=== PATIENT | male | born 1965 | race Caucasian/White ===

== ENCOUNTER 2020-03-26 11:46 | Emergency (ER) | payer OTHER ==
--- OUTSIDE RECORDS SUMMARY | 2020-03-26 11:52 | XMS REPORT | Clinical Summary ---
:1965 Author Organization [facility] Address [address] [place] [address] Care Team Providers Name Role Phone Rojelio Corey MD Primary Care Provider Allergies No Known Allergies Medications Medication Sig Dispensed Refills Start Date End Date Status lisinopril TAKE ONE (1) 3 01/25/2016 Activ e (PRINIVIL,ZESTRIL) 20 TABLET(S) BY MOUTH MG tablet DAILY. HYDROcodone-acetaminop 0 02/25/2016 Active hen (NORCO) 5-325 mg per tablet aspirin 325 MG Take 325 mg by 0 Active buffered tablet mouth daily. CYANOCOBALAMIN, Inject as 0 Acti ve VITAMIN B-12, (B-12 directed. KIT INJ) Active Problems Problem Noted Date Carpal tunnel syndrome of left wrist 03/04/2016 Carpal tunnel syndrome of right wrist 03/04/2016 Family History Medical History Relation Name Comments Cancer Father Diabetes Father Heart disease Father Stroke Father Cancer Mother Hypertension Mother Stroke Mother Relation Name Status Comments Father Alive Mother Social History Tobacco Use Types Packs/Day Years Used Date Never Smoker Smokeless Tobacco: Never Used Alcohol Use Drinks/Week oz/Week Comments No Sex Assigned at Date Recorded Not on file Job Start Date Occupation Industry Not on file Not on file Not on file Travel History Travel Start Travel End No recent travel history available. Last Filed Vital Signs Not on file Plan of Treatment Health Maintenance Due Date Last Done Comments COLONOSCOPY SCREENING 2014 SHINGLES VACCINES (#1) 2014 INFLUENZA VACCINE 03/10/2020 Results Not on fileafter 03/26/2019 (Home) [place] [id number]
--- OUTSIDE RECORDS SUMMARY | 2020-03-26 11:53 | XMS REPORT | Summary of Care ---
:1965 Author Organization [facility] Cardiology [place] Address [address] [place] [address]- Encounter HQ Breana(FIN) [id number] Date(s): 02/18/20 - 02/18/20 [facility] Cardiology [place] [address] [place] [address]- [phone] Discharge Disposition: Home or Self Care Attending Physician: VISIT, NURSE [facility] DOPPLER Referring Physician: Claudia Rivera FINANCIAL AID DIRECTOR Vital Signs Most recent to oldest [Reference Range]: 1 Height 180.34 cm (02/18/20 3:16 PM) Temperature Oral [96.4-99.1 DegF] 98.6 DegF (02/18/20 3:16 PM) Blood Pressure [90-140/60-90 mmHg] 120/80 mmHg (02/18/20 3:16 PM) Respiratory Rate [14-20 BRMIN] 17 BRMIN (02/18/20 3:16 PM) Peripheral Pulse Rate [60-100 bpm] 70 bpm (02/18/20 3:16 PM) Weight 100.909 kg (02/18/20 3:16 PM) Body Mass Index 31.03 m2 (02/18/20 3:16 PM) Problem List Condition Effective Dates Status Health Status Informant Benign hypertension1 05/26/14 Active Body mass index 30+ - obesity2 05/26/14 Active Central chest pain(Confirmed) Active Cobalamin deficiency3 Active Abnormal finding on EKG(Confirmed) Active Family history of colon Active cancer(Confirmed) Fatigue4 05/26/14 Active Gastroesophageal reflux disease5 Active Left ventricular Active hypertrophy(Confirmed) Leukopenia6 Active Right lower quadrant pain7 10/23/14 Active Screening - health check8 10/23/14 Active 1Data migrated from [employer] on 12/06/14.2Data migrated from [employer] on 12/06/14.3Data migrated from [employer] on 12/06/14.4Data migrated from [employer] on 12/06/14.5Data migrated from [employer] on 12/06/14.6Data migrated from [employer] on 12/06/14.7Data migrated from [employer] on 01/14/15.8Data migrated from [employer] on 01/14/15. Allergies, Adverse Reactions, Alerts No Known Medication Allergies Medications No Known Medications Results No data available for this section Immunizations Given and Recorded Vaccine Date Status Refusal Reason diphtheria/pertussis, acel/tetanus adult1 09/20/13 Given 1Result Comment: adacel [[id number]]. Migrated from [facility] ; Data migrated from [employer] on 08/11/2015. Procedures Procedure Date Related Diagnosis Body Site Status Cardiac angiogram1 Completed 59191 approx. Social History Social History Type Response Employment/School Status: Employed. Smoking Status Never smoker; Previous treat ment: None; Ready to change: No; Concerns about tobacco use in household: No; Exposure to Tobacco Smoke None; Cigarette Smoking Last 365 Days No; Reg Smoking Cessation Counseling No entered on: 02/18/20 Assessment and Plan No data available for this section
--- OUTSIDE RECORDS SUMMARY | 2020-03-26 11:53 | XMS REPORT | Continuity of Care Document ---
:1965 Author Organization [facility] Care Team Providers Name Role Phone [facility] Unavailable Un available Problems Problem Status Onset Classification Date Comments Sourc e Date Reported Right lower Active 10/24/19 Problem 02/21/2020 Data quadrant pain 15 migrated Medica l (finding) from [facility] [employer] on 01/14/15. Screening - health Active 10/24/19 Problem 02/21/2020 Data check (procedure) 15 migrated Me dical from [employer] on 01/14/15. PREVENTIVE HEALTH Active 10/24/19 Condition 10/23/2014 M H CARE 15 Medical Group ABDOMINAL PAIN, Active 10/24/19 Condition 10/23/2014 RIGHT LOWER 15 Medical QUADRANT Group Benign hypertension Active 05/26/20 Problem 02/21/2020 Data MH (disorder) 14 migrated Medical from [employer] on 12/06/14. Body mass index 30+ Active 05/26/20 Problem 02/21/2020 Data - obesity (finding) 14 migrated Medical from [employer] on 12/06/14. Fatigue (finding) Active 05/26/20 Problem 02/21/2020 Data M H 14 migrated Medical from [employer] [facility] [employer] on 12/06/14. BODY MASS INDEX Active 05/26/20 Condition 10/23/2014 33.0-33.9, ADULT 14 Med ical Group HYPERTENSION - Active 05/26/20 Condition 10/23/2014 BENIGN ESSENTIAL 14 Med ical Group TIREDNESS Active 05/26/20 Condition 10/23/2014 14 Medical Group SINUSITIS, ACUTE Inactive 05/26/20 Condition 10/23/2014 14 Medical Group CHEST WALL PAIN, Inactive 11/14/19 Condition 10/23/2014 ACUTE 14 Medical Group PULMONARY Inactive 11/14/19 Condition 10/23/2014 CONTUSION, WITHOUT 14 M edical OPEN WOUND INTO Grou p THORAX ACC CAUSED OTH SPEC Inactive 09/21/19 Condition 10/23/2014 CUT&PIERCING 14 Medical INSTRUM/OBJS Group Cobalamin Active Problem 02/21/2020 Data MH deficiency migrated Medical (disorder) from [facility] on 12/06/14. Family history of Active Problem 02/21/2020 M H cancer of colon Medi davin (context-dependent G roup category) Gastroesophageal Active Problem 02/21/2020 Data reflux disease migrated Medic al (disorder) from [facility] on 12/06/14. Leukopenia Active Problem 02/21/2020 Data MH (disorder) migrated Medical from [facility] on 12/06/14. Central chest pain Active Problem 02/21/2020 (finding) Medical Group Abnormal ECG Active Problem 02/21/2020 (finding) Medical Group Left ventricular Active Problem 02/21/2020 hypertrophy Medical (disorder) Group LEUKOPENIA, CHRONIC Active Condition 10/23/2014 Medical Group B12 DEFICIENCY Active Condition 10/23/2014 Medical Group GASTROESOPHAGEAL Active Condition 10/23/2014 REFLUX DISEASE Medic al Group Medications Medication Details Route Status Patient Ordering Order Source Instructions Provider Date Triamcinolone 60 mg, Inactive Acetonide 10 Route: IM, 020 Medical MG/ML Injectable Drug form: Grou p Suspension SUSP, ONCE, Dosing Weight 103.636, kg, Start date: 09/26/19 14:38:00 CDT, Stop date: 09/26/19 14:38:00 CDT albuterol 90 1 puff, Active mcg/inh INHALER, 020 Medical inhalation Q4H, PRN for Group aerosol wheezing/cou gh, # 8.5 gm, 0 Refill(s), Pharmacy: [facility] montelukast 10 10 mg = 1 Active MH mg oral tablet tab, PO, 020 Medical Bedtime, # Group 90 tab, 1 Refill(s), Pharmacy: [facility] cetirizine 10 mg = 1 Active hydrochloride 10 tab, PO, 020 Medica l MG Oral Tablet Daily, # 90 Group [Zyrtec] tab, 0 Refill(s), Pharmacy: [facility] Amoxicillin 875 875 mg = 1 Active MG / Clavulanate tab, PO, 020 Medica l 125 MG Oral BID, X 10 Group Tablet day, # 20 [Augmentin tab, 0 875-mg] Refill(s), Pharmacy: [facility] Vitamin B-12 1,000 Active MH 1000 mcg/mL microgram, 019 Medical injectable SUB-Q, Group solution qMonth, dispense syringes, # 10 mL, 3 Refill(s), Pharmacy: [facility] lisinopril 20 mg 20 mg = 1 Active MH oral tablet tab, PO, 019 Medical Daily, # 30 Group tab, 12 Refill(s), Pharmacy: [facility] lisinopril 20 mg 20 mg = 1 Active MH oral tablet tab, PO, 019 Medical Daily, # 30 Group tab, 11 Refill(s), [facility] ML Varicella 0.5 mL, IM, Active MH zoster virus ONCE, repeat 018 Medica l glycoprotein E, dose in 2 to Nathan up recombinant 0.1 6 months, # MG/ML Injection 1 mL, 1 [Shingrix] Refill(s), Pharmacy: [facility] Vitamin B-12 1,000 Active MH 1000 mcg/mL microgram, 018 Medical injectable SUB-Q, Group solution qMonth, dispense syringes, # 30 mL, 5 Refill(s), Pharmacy: [facility] lisinopril 20 mg 20 mg = 1 Active MH oral tablet tab, PO, 018 Medical Daily, # 90 Group tab, 3 Refill(s), Pharmacy: [facility] AMOXICILLIN 500 1 capsule No Longer MH MG CAPS three times Active 015 Medical a day for 10 Group days IPRATROPIUM 2 spray ea 6 Active MH BROMIDE 0.06 % hours as 015 Medical SOLN needed for Group congestion LISINOPRIL 10 MG 1 tablet Active MH TABS daily for BP 014 Medical Increase Group to 2 tabs daily after 10 days if BP not <135/85 AMOXICILLIN 500 1 capsule No Longer MH MG CAPS three times Active 014 Medical a day for 10 Group days MONTELUKAST 1 tablet Active MH SODIUM 10 MG daily for 014 Medical TABS congestion Group AMOXICILLIN 500 1 capsule Active MH MG CAPS three times 014 Medical a day for 10 Group days MONTELUKAST 1 tablet Active MH SODIUM 10 MG daily for 014 Medical TABS congestion Group MONTELUKAST 1 tablet Active MH SODIUM 10 MG daily for 014 Medical TABS congestion Group CELEBREX 100 MG 1 by mouth Active MH CAPS twice daily 014 Medical Group PX RANITIDINE 75 2 by mouth Active MH MG TABS daily as 014 Medical needed for Group reflux ADVIL 200MG 2-4 by mouth Active MH daily as 014 Medical needed for Group pain HYDROCODONE-ACET 1 tablet No Longer MH AMINOPHEN every 6 Active 014 Medical 7.5-325 MG TABS hours as Group needed for pain CELEBREX 100 MG 1 by mouth No Longer MH CAPS twice daily Active 014 Medical Group HYDROCODONE-ACET 1 tablet No Longer MH AMINOPHEN every 6 Active 014 Medical 7.5-325 MG TABS hours as Group needed for pain TRAMADOL HCL 50 1 TAB PO UP No Longer MH MG TABS TO THREE Active 014 Medical TIMES A DAY Group NEEDED FOR PAIN ZANAFLEX 4 MG 1 TAB PO IN No Longer MH TABS THE PM Active 014 Medical Group TRAMADOL HCL 50 1 TAB PO UP No Longer MH MG TABS TO THREE Active 014 Medical TIMES A DAY Group NEEDED FOR PAIN TRAMADOL HCL 50 1 TAB PO UP No Longer MH MG TABS TO THREE Active 014 Medical TIMES A DAY Group NEEDED FOR PAIN MINOCYCLINE HCL 1 po bid No Longer MH 100 MG CAPS Active 014 Medical Group CYANOCOBALAMIN inject 1ml Active MH 1000 MCG/ML SOLN (1000 mcg) 012 Medi davin IM monthly Group BD LUER-KAM use 1 Active SYRINGE 25G X 1" syringe/need 012 Me dical 3 ML MISC le monthly Group for B12 inj ACIPHEX 20 MG 1 tab po Active MH TBEC daily as Medical needed Group ACIPHEX 20 MG 1 tab po Active MH TBEC daily as Medical needed Group Allergies, Adverse Reactions, Alerts Substance Category Reaction Severity Reaction Status Date Comments S ource type Reported No Known Assertion Drug Medication allergy Medic al Allergies Group Immunizations Immunization Date Site Status Last Comments Source Given Updated Adacel (Tetanus, completed Medical reduced 4 Group Diphtheria, and acellular Pertussis Immunization) diphtheria/pertu Right completed GE Result Medical ssis, 4 Deltoid Comment: Group acel/tetanus adacel adult<sup>1</sup [[id number]]. > Migrated from [facility] ; [facility]. Results Order Name Results Value Reference Date Interpretation Comments Anamaria rce Range Chemistry SODIUM 139 135 - 143 2013 Medical Group Chemistry POTASSIUM 4.1 3.3 - 5.0 2013 Medical Group Chemistry ALBUMIN 4.4 3.5 - 5.0 2013 Medical Group Chemistry CALCIUM 9.2 8.6 - 9.8 2013 Medical Group Chemistry CREATININE 1.04 0.46 - 1.20 2013 Medical Group Chemistry BUN 7 10 - 22 2013 Medical Group Chemistry ALK PHOS 48 32 - 96 2013 Medical Group Chemistry SGOT (AST) 21 10 - 42 2013 Medical Group Chemistry SGPT (ALT) 33 11 - 43 2013 Medical Group Chemistry CHOLESTEROL 204 120 - 200 2013 Medical Group Chemistry HDL 37 26 - 62 2013 Medical Group Chemistry LDL 136 0 - 130 2013 Medical Group Chemistry TSH 1.48 0.34 - 5.60 2013 Medical Group Hematology HGB 15.0 12.3 - 17.3 2013 Medical Group Hematology HCT 45.6 36.7 - 50.5 2013 Medical Group Pathology Reports No Data Provided for This Section Diagnostic Reports No Data Provided for This Section Consultation Notes No Data Provided for This Section Discharge Summaries No Data Provided for This Section History and Physicals No Data Provided for This Section Vital Signs Vital Sign Value Date Comments Source Systolic (mm Hg) 120 02/18/2020 Medical Group Diastolic (mm Hg) 80 02/18/2020 Medical Group Heart Rate 70 02/18/2020 Medical Grou p Respitory Rate 17 02/18/2020 Medical Gr oup Temperature Oral (F) 98.6 F 02/18/2020 Medi davin Group Height 180.34 cm 02/18/2020 Medical Grou p Weight 100.909 02/18/2020 Medical Grou p BMI Calculated 31.03 02/18/2020 Medical Gr oup Systolic (mm Hg) 126 09/26/2019 Medical Group Diastolic (mm Hg) 89 09/26/2019 Medical Group Heart Rate 77 09/26/2019 Medical Grou p Temperature Oral (F) 98.1 F 09/26/2019 Medi davin Group Weight 103.636 09/26/2019 Medical Grou p Systolic (mm Hg) 121 08/01/2019 Medical Group Diastolic (mm Hg) 82 08/01/2019 Medical Group Heart Rate 90 08/01/2019 Medical Grou p Temperature Oral (F) 98.4 F 08/01/2019 Medi davin Group Weight 103.636 08/01/2019 Medical Grou p Systolic (mm Hg) 135 02/18/2019 Medical Group Diastolic (mm Hg) 92 02/18/2019 Medical Group Heart Rate 76 02/18/2019 Medical Grou p Respitory Rate 17 02/18/2019 Medical Gr oup Temperature Oral (F) 97.8 F 02/18/2019 [facility] davin Group Height 180.34 cm 02/18/2019 Medical Grou p Weight 100.455 02/18/2019 Medical Grou p BMI Calculated 30.89 02/18/2019 Medical Gr oup BMI Calculated 31.87 04/13/2018 Medical Gr oup Weight 103.636 04/13/2018 Medical Grou p Height 180.34 cm 04/13/2018 Medical Grou p Systolic (mm Hg) 126 04/13/2018 Medical Group Diastolic (mm Hg) 87 04/13/2018 Medical Group Heart Rate 76 04/13/2018 Medical Grou p Temperature Oral (F) 97.9 F 04/13/2018 Medi davin Group BMI Calculated 31.73 04/12/2018 Medical Gr oup Weight 103.182 04/12/2018 Medical Grou p Height 180.34 cm 04/12/2018 Medical Grou p Heart Rate 74 04/12/2018 Medical Grou p Temperature Oral (F) 97.8 F 04/12/2018 Medi davin Group Respitory Rate 17 04/12/2018 Medical Gr oup Systolic (mm Hg) 120 04/12/2018 [facility] Medical Group Diastolic (mm Hg) 86 04/12/2018 Medical Group BMI Calculated 31.31 01/08/2018 MH Medical Gr oup Weight 101.818 01/08/2018 MH Medical Grou p Height 180.34 cm 01/08/2018 MH Medical Grou p Systolic (mm Hg) 114 01/08/2018 [facility] Medical Group Diastolic (mm Hg) 84 01/08/2018 Medical Group Temperature Oral (F) 97.5 F 01/08/2018 Medi davin Group Heart Rate 89 01/08/2018 MH Medical Grou p Weight 225.0 10/23/2014 Medical Grou p Temperature Oral (F) 97.5 F 10/23/2014 Medi davin Group Heart Rate 73 10/23/2014 Medical Grou p Respitory Rate 16 10/23/2014 Medical Gr oup Systolic (mm Hg) 121 10/23/2014 Medical Group Diastolic (mm Hg) 87 10/23/2014 Medical Group Weight 222 08/07/2014 Medical Grou p Temperature Oral (F) 98.3 F 08/07/2014 Medi davin Group Heart Rate 76 08/07/2014 Medical Grou p Respitory Rate 16 08/07/2014 Medical Gr oup Systolic (mm Hg) 120 08/07/2014 Medical Group Diastolic (mm Hg) 70 08/07/2014 Medical Group Weight 227 05/26/2014 Medical Grou p Temperature Oral (F) 98.1 F 05/26/2014 Medi davin Group Respitory Rate 16 05/26/2014 Medical Gr oup Heart Rate 80 05/26/2014 Medical Grou p Systolic (mm Hg) 136 05/26/2014 Medical Group Diastolic (mm Hg) 100 05/26/2014 Medical Group Weight 222 11/13/2013 MH Medical Grou p Systolic (mm Hg) 156 11/13/2013 Medical Group Diastolic (mm Hg) 106 11/13/2013 Medical Group Temperature Oral (F) 97.6 F 11/13/2013 Medi davin Group Heart Rate 72 11/13/2013 Medical Grou p Weight 227 09/20/2013 Medical Grou p Temperature Oral (F) 98 F 09/20/2013 Medi davin Group Height 69 09/20/2013 Medical Grou p Heart Rate 80 09/20/2013 Medical Grou p Systolic (mm Hg) 136 09/20/2013 Medical Group Diastolic (mm Hg) 80 09/20/2013 Medical Group Encounters Location Location Encounter Encounter Reason Attending ADM DC Stat us Source Details Type Number For Provider Date Date Visit [facility] Office [id number] [facility] 11/13 11/13 [place] Medical Visit [id number] RAJESH Jones /[address] [facility] Internal Medicine [facility] Lab Report [id number] Art 05/26 05/26 [place] [id number] Madhav, /2013 Me jenny Gleason MD [facility] Family Practice [facility] Office [id number] Art 08/07 08/07 [place] [id number] Madhav, Me jenny Gleason MD [facility] Family Practice [facility] Office [id number] Art 10/23 10/23 [place] Visit [id number] Madhav, Me jenny Gleason MD [facility] Family Practice Outpatient [id number] [facility] 04/06 [facility] [id number] ART 09/07 [facility] [place] [facility] [id number] ART 12/14 Active [facility] [id number] ANTONY 01/08 Active [facility] Family Outpatient [id number] Antony 01/08 01/09 Medicine 3 [facility] Outpatient [id number] L JUSTUS 04/12 Active [facility] 4 [facility] Outpatient [id number] L Justus 04/12 04/13 M [facility] Cardiology 4 Medica l [facility] Outpatient [id number] ANTONY 04/13 Active [facility] Family Outpatient [id number] Antony 04/13 04/14 Medicine 5 Jun Medical [facility] Outpatient [id number] DOPPLER 04/16 Active [facility] 7 [facility] Out[facility] [id number] NUCLEAR 04/16 Active [facility] 6 [facility] [place] Out[facility] [id number] NUCLEAR 04/16 Active [facility] 1 [facility] [place] Outpatient [id number] NUCLEAR 04/16 Active [facility] 8 [facility] [place] Outpatient [id number] NUCLEAR 04/16 Active [facility] 0 [facility] [place] Outpatient [id number] NUCLEAR 04/16 Active [facility] 9 V[facility] [place] MG Outpatient [id number] NURSE VISIT 04/16 04/17 Radiology [facility] [id number] NURSE VISIT 04/16 04/16 Radiology Pre-Reg Medica [facility] [id number] NURSE VISIT 04/16 04/16 Radiology Pre-Reg Medica [facility] [id number] NURSE VISIT 04/16 04/16 Radiology Pre-Reg Medica [facility] Outpatient [id number] NURSE VISIT 04/16 04/17 Medicine [facility] [id number] NURSE VISIT 04/16 04/16 Radiology Pre-Reg Medica [facility] Outpatient [id number] ZOLTAN FISHER 07/05 Act [facility] [id number] 07/05 07/05 Medicine Pre-Reg Medical [facility] Phone [id number] 02/14 02/16 Medicine Message [facility] Outpatient [id number] Antony 02/18 Active [facility] [place] [facility] [id number] NURSE VISIT 02/18 Act [facility] Outpatient [id number] Antony 02/18 02/19 Medicine 3 Jun [facility] Outpatient [id number] NURSE VISIT 02/18 02/19 Cardiology Medica [facility] Family Phone [id number] 05/06 05/08 Medicine Message Medical [facility] Outpatient [id number] [place] 08/01 Act [facility] 5 me [place] [facility] Family Outpatient [id number] [place] 08/01 08/02 Medicine 5 tx [place] Medic [facility] Outpatient [id number] [place] 09/25 Act [facility] 6 me [place] 2020 [facility] Family Outpatient [id number] [place] 09/25 09/26 Medicine 6 tx [place] [facility] Outpatient [id number] NURSE VISIT 02/17 Act [facility] [id number] L Justus 02/17 Active M [facility] 8 [place] [place] [facility] Outpatient [id number] Rayto[place] 02/17 02/18 Radiology 7 Nicole Medi d[facility] Outpatient [id number] Raytoysha 02/17 02/18 Cardiology 8 Nicole Med ical [facility] Procedures Procedure Code Date Perfomer Comments Source colonoscopy 18343 09/28/2007 Done [facility] Cardiac [id number] 2007 approx. Medical angiogram<sup>1</s Group up> Assessment and Plan No Data Provided for This Section Plan of Care No Data Provided for This Section Social History Social History Date Source Social History TypeResponse 04/12/2018 Medical Julee dahl Employment/School Status: Employed. Smoking Status Never smoker; Previous treatment: None; Ready to change: No; Concerns about tobacco use in household: No; Exposure to Tobacco Smoke None; Cigarette Smoking Last 365 Days No; Reg Smoking Cessation Counseling No entered on: 02/18/20 Family History No Data Provided for This Section Advance Directives No Data Provided for This Section Functional Status No Data Provided for This Section
--- OUTSIDE RECORDS SUMMARY | 2020-03-26 11:53 | XMS REPORT | Summary of Care ---
:1965 Author Organization [facility] Radiology [place] Address [address] [address]- Encounter [facility] Orlyr_prabhu(FIN) [id number] Date(s): 02/18/20 - 02/18/20 [facility] [address] [address] [phone] Discharge Disposition: Home or Self Care Attending Physician: VISIT, NURSE [facility] DOPPLER Referring Physician: Claudia Rivera SLIVER FORMER Vital Signs No data available for this section Problem List Condition Effective Dates Status Health [...] Alerts No Known Medication Allergies Medications No data available for this section Results No data available for this section Immunizations Given and Recorded Vaccine Date Status Refusal Reason diphtheria/pertussis, acel/tetanus adult1 09/20/13 Given 1Result Comment: adacel [[id number]]. Migrated from [facility] ; Data migrated from [employer] on 08/11/2015. Procedures Procedure Date Related Diagnosis Body Site Status Cardiac angiogram1 Completed 39147 approx. Social History Social History Type Response [...]
--- NOTE | 2020-03-26 13:25 | RAD REPORT ---
EXAM DESCRIPTION: US - Extremity Venous [facility] - 03/26/2020 12:40 pm CLINICAL HISTORY: PAIN COMPARISON: None. TECHNIQUE: Real-time sonographic evaluation of the right lower extremity deep venous systems was per formed. FINDINGS: Normal compressibility, flow augmentation, phasic flow and spontaneous flow are identified in the right lower extremity common femoral, superficial femoral, popliteal and posterior tibial vei ns. No intraluminal filling defects seen. Incidental note made of an 18 millimeter oval right popliteal fossa cyst. No cyst rupture or hemorrha ge. IMPRESSION: No DVT in the right lower extremity. Small popliteal fossa cyst with no cyst rupture or hemorrhage findings.
--- NOTE | 2020-03-26 13:28 | EDPHYS ---
Physician Documentation [facility] Name: Herberth Acharya Age: 54 yrs Sex: Male : 1965 Arrival Date: 03/26/2020 Time: 11:48 Bed 20 Private MD: ED Physician Eder Horowitz HPI: 03/26 13:02 This 54 yrs old Male presents to ER via Ambulatory with complaints of Leg kb Pain. 13:02 The patient presents with pain, that is acute. The complaints affect the right calf. kb Context: The problem was sustained at home, resulted from an unknown cause, the patient can fully bear weight, the patient is able to ambulate. Onset: The symptoms/episode began/occurred 3 day(s) ago. Modifying factors: The symptoms are alleviated by nothing. the symptoms are aggravated by nothing. Associated signs and symptoms: Pertinent positives: calf tenderness, Pertinent negatives fever, nausea, numbness, rash, swelling, tingling, vomiting, warmth, weakness. Treatment prior to arrival includes: no previous treatment. Severity of symptoms: At their worst the symptoms were moderate, in the emergency department the symptoms have improved. The patient has not experienced similar symptoms in the past. The patient has not recently seen a physician. Pt reports right calf pain that started 3-4 days ago. Denies injury. . Historical: - Allergies: 11:55 No Known Allergies; em - Home Meds: 11:55 lisinopril 20 mg Oral tab [Active]; em - PMHx: 11:55 Hypertension; em - PSHx: 11:55 None; em - Immunization history:: Adult Immunizations up to date. - Social history:: Smoking status: Patient denies any tobacco usage or history of. ROS: 13:02 Constitutional: Negative for fever, chills, and weight loss, Cardiovascular: Negative kb for chest pain, palpitations, and edema, Respiratory: Negative for shortness of breath, cough, wheezing, and pleuritic chest pain, Abdomen/GI: Negative for abdominal pain, nausea, vomiting, diarrhea, and constipation, Back: Negative for injury and pain, Skin: Negative for injury, rash, and discoloration, Neuro: Negative for headache, weakness, numbness, tingling, and seizure. 13:02 MS/extremity: Positive for pain, tenderness, of the right calf. Exam: 13:02 Constitutional: This is a well developed, well nourished patient who is awake, alert, kb and in no acute distress. Head/Face: Normocephalic, atraumatic. Neck: Trachea midline, no thyromegaly or masses palpated, and no cervical lymphadenopathy. Supple, full range of motion without nuchal rigidity, or vertebral point tenderness. No Meningismus. Chest/axilla: Normal chest wall appearance and motion. Nontender with no deformity. No lesions are appreciated. Cardiovascular: Regular rate and rhythm with a normal S1 and S2. No gallops, murmurs, or rubs. Normal PMI, no JVD. No pulse deficits. Respiratory: Lungs have equal breath sounds bilaterally, clear to auscultation and percussion. No rales, rhonchi or wheezes noted. No increased work of breathing, no retractions or nasal flaring. Abdomen/GI: Soft, non-tender, with normal bowel sounds. No distension or tympany. No guarding or rebound. No evidence of tenderness throughout. Skin: Warm, dry with normal turgor. Normal color with no rashes, no lesions, and no evidence of cellulitis. MS/ Extremity: Pulses equal, no cyanosis. Neurovascular intact. Full, normal range of motion. Neuro: Awake and alert, GCS 15, oriented to person, place, time, and situation. Cranial nerves II-XII grossly intact. Motor strength 5/5 in all extremities. Sensory grossly intact. Cerebellar exam normal. Normal gait. Vital Signs: 11:52 BP 151 / 95; Pulse 82; Resp 18; Temp 98.1(O); Pulse Ox 99% on R/A; Weight 99.79 kg; em Height 5 ft. 10 in. (177.80 cm); Pain 2/10; 11:52 Body Mass Index 31.57 (99.79 kg, 177.80 cm) em MDM: 12:04 Patient medically screened. kb 13:02 Data reviewed: vital signs, nurses notes. Data interpreted: Pulse oximetry: on room air kb is 99 %. Interpretation: normal. Counseling: I had a detailed discussion with the patient and/or guardian regarding: the historical points, exam findings, and any diagnostic results supporting the discharge/admit diagnosis, radiology results, the need for outpatient follow up, a family practitioner, to return to the emergency department if symptoms worsen or persist or if there are any questions or concerns that arise at home. 03/26 12:06 Order name: Extremity Venous [employer] US; Complete Time: 13:27 em Administered Medications: No medications were administered Disposition: 03/27 14:00 Co-signature as Attending Physician, Eder Horowitz MD I agree with the assessment and kdr plan of care. Disposition: 03/26/20 13:27 Discharged to Home. Impression: Pain in right lower leg. - Condition is Stable. - Discharge Instructions: Musculoskeletal Pain. - Medication Reconciliation Form, Thank You Letter, Antibiotic Education, Prescription Opioid Use form. - Follow up: Emergency Department; When: As needed; Reason: Worsening of condition. Follow up: Private Physician; When: 2 - 3 days; Reason: Recheck today's complaints, Continuance of care, Re-evaluation by your physician. Signatures: Dispatcher [employer] EDRonel Lynne, LAST INSERTER-C LAST INSERTER-Eder Bocanegra MD MD [facility] Junior Waldrop, AMAURY RN em Lissette Garza RN RN ls4 Corrections: (The following items were deleted from the chart) 03/26 14:20 13:27 03/26/2020 13:27 Discharged to Home. Impression: Pain in right lower leg. ls4 Condition is Stable. Discharge Instructions: Musculoskeletal Pain. Forms are Medication Reconciliation Form, Thank You Letter, Antibiotic Education, Prescription Opioid Use. Follow up: Emergency Department; When: As needed; Reason: Worsening of condition. Follow up: Private Physician; When: 2 - 3 days; Reason: Recheck today's complaints, Continuance of care, Re-evaluation by your physician. kb
--- NOTE | 2020-03-26 13:28 | ER ---
Nurse's Notes [facility] Name: Herberth Acharya Age: 54 yrs Sex: Male : 1965 Arrival Date: 03/26/2020 Time: 11:48 Bed 20 Private MD: Diagnosis: Pain in right lower leg Presentation: 03/26 11:52 Chief complaint: Patient states: right leg pain that started Monday/Monday, denies em trauma, went to see the nurse at work and was told to come get checked out for a blood clot in the leg. Coronavirus screen: Client denies travel out of the [place] in the last 14 days. Ebola Screen: Patient negative for fever greater than or equal to 101.5 degrees Fahrenheit, and additional compatible Ebola Virus Disease symptoms Patient denies exposure to infectious person. Patient denies travel to an Ebola-affected area in the 21 days before illness onset. No symptoms or risks identified at this time. Initial Sepsis Screen: Does the patient meet any 2 criteria? No. Patient's initial sepsis screen is negative. Does the patient have a suspected source of infection? No. Patient's initial sepsis screen is negative. Risk Assessment: Do you want to hurt yourself or someone else? Patient reports no desire to harm self or others. Onset of symptoms was March 23, 2020. 11:52 Method Of Arrival: Ambulatory em 11:52 Acuity: OLIVE 3 em Triage Assessment: 12:10 General: Appears in no apparent distress. comfortable. Pain:. ls4 Historical: - Allergies: 11:55 No Known Allergies; em - Home Meds: 11:55 lisinopril 20 mg Oral tab [Active]; em - PMHx: 11:55 Hypertension; em - PSHx: 11:55 None; em - Immunization history:: Adult Immunizations up to date. - Social history:: Smoking status: Patient denies any tobacco usage or history of. Screenin:12 Abuse screen: Denies threats or abuse. Denies injuries from another. Nutritional ls4 screening: No deficits noted. Tuberculosis screening: No symptoms or risk factors identified. Fall Risk None identified. Assessment: 12:11 General: Appears in no apparent distress. comfortable. Pain: Complains of pain in right ls4 leg Pain currently is 2 out of 10 on a pain scale. Neuro: No deficits noted. Cardiovascular: Denies chest pain, Capillary refill < 3 seconds Patient's skin is warm and dry. Respiratory: Airway is patent is compromised Respiratory effort is even, unlabored, Respiratory pattern is regular. Derm: No deficits noted. No signs and/or symptoms reported regarding the dermatologic system. Musculoskeletal: No deficits noted. No signs and/or symptoms reported regarding the musculoskeletal system. Vital Signs: 11:52 BP 151 / 95; Pulse 82; Resp 18; Temp 98.1(O); Pulse Ox 99% on R/A; Weight 99.79 kg; em Height 5 ft. 10 in. (177.80 cm); Pain 2/10; 11:52 Body Mass Index 31.57 (99.79 kg, 177.80 cm) em ED Course: 11:48 Patient arrived in ED. ds1 11:55 Triage completed. em 11:55 Arm band placed on. em 11:57 Lissette Garza, RN is Primary Nurse. ls4 12:04 [facility]onel [facility]C [facility]. kb 12:04 Eder Horowitz MD is Attending Physician. kb 12:12 No apparent distress. ls4 12:12 Patient has correct armband on for positive identification. Bed in low position. Call ls4 light in reach. Side rails up X 1. Pulse ox on. NIBP on. Verbal reassurance given. 12:12 No provider procedures requiring assistance completed. Patient maintains SpO2 ls4 saturation greater than 95% on room air. 12:41 Extremity Venous [employer] US In Process Unspecified. EDMS Administered Medications: No medications were administered Outcome: 13:27 Discharge ordered by . kb 13:58 Discharged to home ambulatory. ls4 13:58 Condition: good 13:58 Discharge instructions given to patient, Instructed on discharge instructions, follow up and referral plans. Demonstrated understanding of instructions, follow-up care. 14:20 Patient left the ED. ls4 Signatures: Dispatcher [employer] EDMS Ronel Henao FNP-C FNP-Ckb Munoz, Edgar, RN RN [facility] ds Lissette Garza, RN RN ls4
[2020-03-26 14:25] VITALS: BP 151/95; TEMP 98.1; O2SAT 99
== END 2020-03-26 14:20 | disposition home or self-care (01) ==
LOC: ER 11:46
DX: M79.661 Pain in right lower leg (principal); I10 Essential (primary) hypertension
CPT/HCPCS: 93971; 99284